=== PATIENT | female | born 1960 | race Caucasian/White ===

== ENCOUNTER 2023-09-11 08:57 | Emergency (ER) | payer OTHER, SELFPAY ==
[2023-09-11 09:06] VITALS: BP 154/76; PULSE 55; RESP 14; TEMP 37; O2SAT 98
--- NOTE | 2023-09-11 09:11 | ED.URI ---
HPI - URI/Sore Throat General Chief Complaint: Upper Respiratory Infection Stated Complaint: Sore Throat/Headache/Rash Time Seen by Provider: 09/11/23 09:22 Source: patient and RN notes reviewed Mode of arrival: ambulatory Limitations: no limitations History of Present Illness HPI Narrative: Too 3-year-old female presents with concern for 2-3 day history of headache, occasional cough, body aches. She reports she had 2 red bumps on her chin that she noticed this morning. She reports her grandchildren have [id number] disease. She has not taken any ftyl-jem-xpybizr medications for her symptoms. She denies fever, chills, sweats. She denies stuffy nose, runny nose MD elicited complaint: cough Related Data Home Medications Medication Instructions Recorded Confirmed levothyroxine 150 mcg tablet 150 mcg PO DAILY 09/11/23 09/11/23 nebivolol 20 mg tablet 20 mg PO DAILY 09/11/23 09/11/23 Allergies Allergy/AdvReac Type Severity Reaction Status Date / Time morphine Allergy Unknown Verified 09/11/23 09:21 Review of Systems Review of Systems: CONSTITUTIONAL: Denies malaise, chills, sweats, or fever. EYES: Denies visual changes, redness, or discharge. ENT: Denies rhinorrhea, congestion, sinus pain, otalgia and sore throat. CARDIOVASCULAR: Denies chest pain, palpitations, or edema. RESPIRATORY: Reports cough. Denies dyspnea. GASTROINTESTINAL: Denies abdominal pain, nausea, vomiting, diarrhea SKIN: Reports to red bumps on her chin MUSCULOSKELETAL: Reports myalgia. NEUROLOGIC: Reports headache. All systems reviewed & are unremarkable except as noted in HPI and below PMFSH Comments At time of signature, agree with nursing past medical, surgical, social and family history. There is no relevant family history pertinent to the presenting complaint Exam Narrative: GENERAL: Well-appearing, well-nourished, and in no acute distress. HEAD: Normocephalic EYES: PERRLA, conjunctivae clear ENT: Nares clear. Mucous membranes moist. TM pearly alaniz with sharp light reflex bilaterally; no tragal tenderness. Oropharynx not erythematous without lesions. Tonsils not enlarged and without exudate, no drooling, no hoarseness, no trismus, uvula midline. NECK: Supple. No lymphadenopathy CHEST: Clear to auscultation, breath sounds equal. No wheezing, rhonchi, rales, or stridor. No respiratory distress, speaks in full sentences. HEART: Regular rate and rhythm. No murmur heard. SKIN: Warm, dry 2 small erythematous papules noted to the chin without surrounding erythema, edema, induration NEURO: Alert and oriented x3. PSYCH: Normal mood and affect Course Course Emergency Course: Patient is aware of diagnosis, understands and agrees to treatment plan. Anticipatory guidance given. Patient agrees to follow-up as directed and is aware of reasons to seek care at the emergency department. Portions of this record may have been created with voice recognition software Level of Care: Express Care Visit Vital Signs Vital signs: Reviewed. MDM - URI/Sore Throat MDM Narrative Medical decision making narrative: Differential diagnosis considered: Myles virus, strep pharyngitis, allergic rhinitis, upper respiratory tract infection, sinusitis, rhinosinusitis, nasopharyngitis. viral pharyngitis, otitis media, otitis externa, pneumonia, bronchitis, viral cough syndrome, viral syndrome, and influenza. Exam findings show no acute concerns or changes; patient is non-toxic appearing and is in no distress. Patient is appropriate for outpatient treatment and follow-up. Lab Data Attestation: I reviewed the patient's lab results. Critical Care Time Critical Care Time Critical Care Time: No Discharge Plan Discharge Clinical Impression: Viral syndrome Patient Disposition: Home, Self-Care Condition: Stable Instructions: Viral Syndrome (ED) Additional Instructions: -Take strict precautions to prevent the spread of your virus. Be diligent about
== END 2023-09-11 09:32 | disposition home or self-care (01) ==
PROVIDERS: Emergency Provider Nurse Practitioner
DX: B34.9 Viral infection, unspecified (principal); I10 Essential (primary) hypertension; E03.9 Hypothyroidism, unspecified
CPT/HCPCS: 99211; G0463

== ENCOUNTER 2024-03-23 09:51 | Emergency (ER) | payer OTHER, SELFPAY ==
--- NOTE | ~2024-03-23 | XR_ITS ---
EXAMINATION: XR wrist LT min 3V DATE: 03/23/2024 10:25 INDICATION: Left wrist pop. TECHNIQUE: 3 views of left wrist were obtained. COMPARISON: None. FINDINGS: Alignment is normal. No fracture. There is mild osteoarthritis of first carpometacarpal rom nt. IMPRESSION: 1. Mild osteoarthritis of first carpometacarpal joint. Reviewed, dictated and finalized at location [facility] [employer]
[2024-03-23 10:02] VITALS: BP 154/75; PULSE 61; RESP 16; TEMP 36.6; O2SAT 98
--- NOTE | 2024-03-23 10:13 | ED_ITS ---
HPI - Extremity Injury (Upper) General Chief Complaint: Extremity Injury, Upper Stated Complaint: Left Wrist Injury Time Seen by Provider: 03/23/24 10:16 Source: patient Mode of arrival: ambulatory Limitations: no limitations History of Present Illness HPI narrative: 64-year-old female presented for complaint left wrist pain and swelling after injury 3 weeks ago. She states she gripped the top of a heavy box with the left hand and felt a pop. since then she has had pain and swelling, with decreased range of motion due to pain. Twisting movement is the worst pain. Takes ibuprofen daily. Denies numbness, tingling or weakness. Related Data Home Medications ?Medication ?Instructions ?Recorded ?Confirmed ?Last Taken ?Type levothyroxine 150 mcg tablet 150 mcg PO DAILY 09/11/23 09/11/23 Unknown History nebivolol 20 mg tablet 20 mg PO DAILY 09/11/23 09/11/23 Unknown History aspirin 81 mg tablet,delayed 81 mg PO DAILY 03/23/24 Unknown History release (Adult Aspirin Regimen) Allergies Allergy/AdvReac Type Severity Reaction Status Date / Time Penicillins Allergy Unknown Unknown Verified 03/23/24 10:05 morphine Allergy Unknown Verified 03/23/24 10:05 Review of Systems Review of Systems: CONSTITUTIONAL: Denies body aches, fever, chills CARDIOVASCULAR: Denies chest pain, palpitations, or edema. RESPIRATORY: Denies cough or dyspnea. SKIN: Denies wounds. MUSCULOSKELETAL: reports left wrist pain NEUROLOGIC: Denies headache, numbness, tingling, or weakness. All systems reviewed & are unremarkable except as noted in HPI and below PMFSH Comments At time of signature, I have reviewed and agree with nursing past medical, surgical, social and family history unless otherwise noted. Please see nursing chart for further information. There is no relevant family history pertinent to the presenting complaint Exam Narrative: GENERAL: Well-appearing CHEST: Speaks in full sentences. No respiratory distress. HEART: Regular rate and rhythm. Normal and equal peripheral pulses. EXTREMITIES: Left hand has normal strength and sensation. Left wrist with slightly decreased range of motion with flexion/extension/rotation, due to endorses pain with movement. Mild ulnar swelling. No erythema or ecchymosis, No point tenderness. No open wounds, or obvious deformity; alignment normal, pulse palpable and equal bilaterally, skin warm, dry, pink. Capillary refill less than 3 seconds. SKIN: Warm, dry NEURO: Alert and oriented x3. PSYCH: Normal mood and affect Course Course Emergency Course: Patient is aware of diagnosis, understands and agrees to treatment plan. Anticipatory guidance given. Patient agrees to follow-up as directed and is aware of reasons to seek care at the emergency department. Portions of this record may have been created with voice recognition software Level of Care: Express Care Visit Vital Signs Vital signs: Vital Signs Temperature 97.8 F 03/23/24 10:02 Pulse Rate 61 03/23/24 10:02 Respiratory Rate 16 03/23/24 10:02 Blood Pressure 154/75 H 03/23/24 10:02 Pulse Oximetry 98 03/23/24 10:02 Oxygen Delivery Room Air 03/23/24 10:02 Temperature 97.8 F 03/23/24 10:02 Pulse Rate 61 03/23/24 10:02 Respiratory Rate 16 03/23/24 10:02 Blood Pressure 154/75 H 03/23/24 10:02 Pulse Oximetry 98 03/23/24 10:02 Oxygen Delivery Room Air 03/23/24 10:02 Reviewed MDM - Extremity Injury (Upper) MDM Narrative Medical decision making narrative: Patient's injury and pain appear to be of musculoskeletal nature. Discussed physical exam findings and xray. Advised supportive measures and signs/symptoms to go to the ER. Pt is appropriate for outpt treatment and f/u. Differential Diagnosis Differential diagnosis: Likely sprain and strain of wrist, fracture of wrist, fracture of hand and other (gout, cellulitis, arthritis, tendonitis) Imaging Data Radiologist's impression: Patient: Jauna Viramontes : 1960 MR#: [id number] Age: 64 Acct:[id number] Loc: [facility] ADM Date: 03/23/24Attending Dr: Ordering Physician: Bianca Patel APRN Date of Service: 03/23/24 Procedure(s): XR wrist LT min 3V Accession Number(s): [id number] cc: Bianca Patel APRN~ EXAMINATION: XR wrist LT min 3V DATE: 03/23/2024 10:25 INDICATION: Left wrist pop. TECHNIQUE: 3 views of left wrist were obtained. COMPARISON: None. FINDINGS: Alignment is normal. No fracture. There is mild osteoarthritis of first carpometacarpal joint. IMPRESSION: 1. Mild osteoarthritis of first carpometacarpal joint. Discharge Plan Discharge Clinical Impression: Sprain and strain of wrist Patient Disposition: Home, Self-Care Condition: Stable Instructions: Wrist Sprain (ED) Additional Instructions: Rest and elevate the left hand; activity as tolerated -- avoid lifting, pulling, pushing etc until symptoms are resolved Apply ice 15-20 minute intervals several times a day Keep it wrapped with BA or use a soft wrist splint Motrin 800mg every 8 hours, alternate with Tylenol 1000mg every 8 hours as needed Follow up with your primary care provider Go to the ER for worsening symptoms or concerns Patient Language: Occitan Prescriptions: No Action levothyroxine 150 mcg tablet 150 mcg PO DAILY nebivolol 20 mg tablet 20 mg PO DAILY aspirin [Adult Aspirin Regimen] 81 mg tablet,delayed release (DR/EC) 81 mg PO DAILY Follow-up/Referrals: PHYSICIAN NOT ON STAFF,NONSTAFF [Primary Care Provider] - Time of Disposition: 10:41
== END 2024-03-23 10:47 | disposition home or self-care (01) ==
PROVIDERS: Emergency Provider Nurse Practitioner Family
DX: S63.502A Unspecified sprain of left wrist, initial encounter (principal); X50.1XXA Overexertion from prolonged static or awkward postures, initial encounter; M19.032 Primary osteoarthritis, left wrist; Z79.82 Long term (current) use of aspirin
CPT/HCPCS: 73110; 99213; G0463